=== PATIENT | male | born 1995 | race Caucasian/White ===

== ENCOUNTER 2016-09-24 11:18 | Emergency (ER) | payer MEDICAID ==
[2016-09-24] MEDS ORDERED: Lidocaine 1%* 5 ML VIAL ONE (11:35)
[2016-09-24] MEDS ORDERED: Lidocaine 2% 10 ML* VIAL INJ ONE (11:47)
[2016-09-24 11:57] VITALS: BP 131/73
--- NOTE | 2016-09-24 17:53 | ED ---
Ginny Stahl Edward, scribed for Blanco Bettencourt MD on 09/24/16 at 1132 . Skin Complaint - HPI Summary HPI Summary: 21 y/o male presents to the ED c/o gradual onset abscess in his groin area on the L side. The abscess started a few days ago as a small bump and gradually became bigger; pain from the abscess became severe two days ago and is rated 7/ 10 at triage. Pain from the abscess is aggravated with walking. Associated sx: brown drainage starting last night. - History of Current Complaint Chief Complaint: EDRashSkinAbscess Stated Complaint: GROIN PAIN Hx Obtained From: Patient Onset/Duration: Started Days Ago, Still Present Timing: Constant Onset Severity: Mild Current Severity: Severe Pain Intensity: 7 Pain Scale Used: 0-10 Numeric Skin Location: Other: - Groin Character: Painful Aggravating Symptom(s): Other: - Walking Associated Signs & Symptoms: Drainage, Tenderness - Allergy/Home Medications Allergies/Adverse Reactions: Allergies Allergy/AdvReac Type Severity Reaction Status Date / Time No Known Allergies Allergy Verified 09/24/16 11:24 PMH/Surg Hx/FS Hx/Imm Hx Previously Healthy: No Endocrine/Hematology History: Denies: Hx Diabetes Cardiovascular History: Denies: Hx Hypertension, Hx Myocardial Infarction Respiratory History: Denies: Hx Asthma Infectious Disease History: Denies: Traveled Outside the [place] in Last 30 Days - Family History Known Family History: Negative: Cardiac Disease, Hypertension, Diabetes - Social History Occupation: Employed Full-time Lives: With Family Alcohol Use: Occasionally Hx Substance Use: No Substance Use Type: Reports: None Hx Tobacco Use: Yes Smoking Status (MU): Current Every Day Smoker Review of Systems Constitutional: Negative Eyes: Negative ENT: Negative Cardiovascular: Negative Respiratory: Negative Gastrointestinal: Negative Genitourinary: Negative Musculoskeletal: Negative Skin: Other - Abscess and drainage @ groin area Neurological: Negative Psychological: Normal All Other Systems Reviewed And Are Negative: Yes Physical Exam - Summary Physical Exam Summary: VITAL SIGNS: Reviewed. GENERAL: ~Patient is a well-developed and nourished male who is lying comfortable in the stretcher. ~Patient is not in any acute respiratory distress. HEAD AND FACE: No signs of trauma. ~No ecchymosis, hematomas or skull depressions. No sinus tenderness. EYES: PERRLA, EOMI x 2, No injected conjunctiva, no nystagmus. EARS: Hearing grossly intact. Ear canals and tympanic membranes are within normal limits. MOUTH: Oropharynx within normal limits. NECK: Supple, trachea is midline, no adenopathy, no JVD, no carotid bruit, no c- spine tenderness, neck with full ROM. CHEST: Symmetric, no tenderness at palpation LUNGS: Clear to auscultation bilaterally. No wheezing or crackles. CVS: Regular rate and rhythm, S1 and S2 present, no murmurs or gallops appreciated. ABDOMEN: Soft, non-tender. No signs of distention. No rebound no guarding, and no masses palpated. Bowel sounds are normal. EXTREMITIES: FROM in all major joints, no edema, no cyanosis or clubbing. NEURO: Alert and oriented x 3. No acute neurological deficits. Speech is normal and follows commands. SKIN: Dry and warm : Testicles - no masses, nontender, normal cremasteric reflex. Abscess L inguinal area, draining. Triage Information Reviewed: Yes Vital Signs On Initial Exam: Initial Vitals Temp Pulse Resp BP Pulse Ox 97.6 F 89 16 143/75 100 09/24/16 11:21 09/24/16 11:21 09/24/16 11:21 09/24/16 11:21 09/24/16 11:21 Vital Signs Reviewed: Yes Procedures - Incision and Drainage Site: L inguinal area Anesthesia: Lidocaine - 1% Instrument(s): Scalpel Packing: Gauze - and packing Diagnostics - Vital Signs Vital Signs Temp Pulse Resp BP Pulse Ox 09/24/16 11:21 97.6 F 89 16 143/75 100 - Laboratory Lab Statement: Any lab studies that have been ordered have been reviewed, and results considered in the medical decision making process. Course/Dx - Course Assessment/Plan: 21 y/o male presents to the ED c/o gradual onset abscess in his groin area. The abscess started a few days ago as a small bump and became severe on two days ago. Pain from the abscess is aggravated with walking. Associated sx: drainage starting last night. 21 y/o male with abscess in L inguinal area with slight draining. I&D procedure was done - see procedure note. A culture was taken. The pt is taking bactrim 2x day. There are no signs of necrosis. Pt will be d/c home with f/u with pcp in 2-3 days. If he can't secure an appointment, he will return to the ED for wound assessment and packing removal. The pt is hemodynamically stable, A&Ox3. I discussed all the findings and test results with the patient. Patient was instructed to return to the emergency room immediately if any of the symptoms return or worsens. Plan of care was discussed with the patient and understands and agrees. All questions were answered at patient satisfaction. There were no further complaints or concerns. - Diagnoses Provider Diagnoses: Abscess Discharge - Discharge Plan Condition: Stable Disposition: HOME Patient Education Materials: Abscess (ED), Abscess Follow-up (ED) Referrals: Gabriella Dotson MD [Primary Care Provider] - 3 Days (PLEASE F/U IN 2-3 DAYS ) The documentation as recorded by the Ginny loco Edward accurately reflects the service I personally performed and the decisions made by , Blanco Bettencourt MD.
== END 2016-09-24 12:24 | disposition home or self-care (01) ==
LOC: ED 11:18
DX: L02.214 Cutaneous abscess of groin (principal); F17.210 Nicotine dependence, cigarettes, uncomplicated
CPT/HCPCS: 10060; 87070; 87077; 87205; 87640; 87641; 99281; J2001